=== PATIENT | female | born 1980 | race Caucasian/White ===

== ENCOUNTER 2017-07-09 18:47 | Emergency (ER) | payer MEDICAID ==
[2017-07-09] MEDS: LORAZEPAM 1 MG TAB PO (19:54)
[2017-07-09] MEDS: IBUPROFEN 600 MG TAB PO (19:54)
== END 2017-07-09 20:09 | disposition home or self-care (01) ==
LOC: FTE 18:47
DX: M25.511 Pain in right shoulder (principal); R10.2 Pelvic and perineal pain; F41.9 Anxiety disorder, unspecified
CPT/HCPCS: 99283; Z7502

== ENCOUNTER 2018-06-04 08:26 | Emergency (ER) | payer MEDICAID | END 2018-06-04 10:14 | disposition home or self-care (01) | LOC: FTE 10:14 | DX: R05 Cough (principal) | CPT/HCPCS: 71045; 99283-25 ==